=== PATIENT | female | born 1965 | race Caucasian/White ===

== ENCOUNTER 2020-09-05 08:51 | Outpatient (CLI) | payer BC, SELFPAY ==
[2020-09-05 10:01] LABS: SARS-CoV-2 Ag Negative (Negative)
== END 2020-09-05 08:52 | disposition home or self-care (01) ==
LOC: CHSLAB 08:57
PROVIDERS: PCP Nurse Practitioner; Visit Provider Nurse Practitioner
DX: Z20.828 Contact with and (suspected) exposure to other viral communicable diseases (principal)
CPT/HCPCS: 87426